=== PATIENT | male | born 1975 ===

== ENCOUNTER → 2018-06-29 | Outpatient (CLI) | payer OTHER ==
[~2018-06-29] MED LIST: AMLO5TAB10 PO; FLUT100D IH; LISI-130 PO; LORA10TA68 PO
--- NOTE | 2018-06-29 12:59 | PAIN ---
DATE OF SERVICE: 06/29/2018 CHIEF COMPLAINT: Right shoulder pain. HISTORY OF PRESENT ILLNESS: The patient is a 43-year-old male with a history of recurrent pain from preexisting injuries, work related and active duty related for many years and his chief complaint is on his right shoulder; however, the patient reports also some pain in the low back and right foot. He has had some surgery in his foot as well, but it has been getting much better with time and physical therapy. The patient reports again, his chief complaint is right shoulder pain, worse with weightbearing activity, reaching over his head with his right arm, any repetitive motions, reaching forward or weight supporting activities. Exercise has become very difficult for him as well secondary to the pain. The patient reports it awakens him from sleep at night, almost every night and does not affect his bowel or bladder control or his ability to walk, but is significant as far as the pain goes with the use of the right shoulder. The patient reports no significant loss of range of motion, but significant pain with movement. The patient reports it is becoming more constant. He finished physical therapy in April of this year. In 2006, he reports he fell, grabbed tree branches. He was falling with his right arm, had partial dislocation of the right shoulder and again multiple injuries of the shoulder over the time. The patient also has low back pain, which is bothersome as well, but his chief complaint is his shoulder. The patient has had physical therapy once again and doing exercise currently. Did have intraarticular injections about 2 years ago, which helped significantly by about 80% by his report. The patient has tried Motrin, Toradol, hydrocodone. Toradol and hydrocodone decreased the pain, but the Motrin has not been effective. The patient reports no loss of motor function and no symptoms significantly in the left shoulder, but in the low back and right leg as well. PAST MEDICAL HISTORY: Significant for hypertension, hearing loss, using hearing aids. PREVIOUS SURGERY: Include right foot surgery with a fractured metacarpal bone, also left knee surgery for meniscus tear. CURRENT MEDICATIONS: Include Flovent, Claritin, lisinopril and amlodipine. ALLERGIES: The patient has no known drug allergies. FAMILY HISTORY: Significant for cancers, multiple types. SOCIAL HISTORY: The patient does not drink alcohol; does not smoke; does not use any illegal, illicit or recreational drugs. He is , lives with his spouse, has 2 children living at home, lives locally in [place], [place]. The patient reports he is no longer active at this time. REVIEW OF SYSTEMS: Positive for those items mentioned in history of present illness. All systems reviewed and otherwise negative. It is complete, full and well documented on the patient's chart. PHYSICAL EXAMINATION: VITAL SIGNS: Blood pressure 135/92, pulse 77, respirations 18, temperature 98.2 degrees Fahrenheit, height is 66 inches, weight is 218 pounds. GENERAL: The patient is awake, alert, oriented, appropriate, very pleasant demeanor. HEENT: Head shows normocephalic, atraumatic. Extraocular movements are intact and symmetrical. Oral cavity: Mucous membranes moist and pink. Dentition is intact. NECK: Shows anterior throat supple without palpable lymphadenopathy noted. Swallow reflex is symmetrical. CHEST: Shows normal with inspection. Breath sounds are clear to auscultation bilaterally. HEART: Shows S1, S2 clear. No murmurs auscultated. ABDOMEN: Soft, nontender, nondistended. No palpable organomegaly is noted. No rebound or guarding demonstrated. BACK: Shows spine grossly in the midline. Normal appearing thoracic kyphosis, lumbar lordotic curvature. There is some moderate tenderness with palpation of the lumbar paraspinous musculature, but is symmetrical on inspection. No radiation is demonstrated. The patient has good rotational motion, both laterally as well as extension and flexion without significant pain reported. No tenderness over the sacrum or sacroiliac regions or the spinous processes. EXTREMITIES: The patient's upper extremities show deep tendon reflexes 2+ in the biceps and triceps tendons. Motor exam is strong with marine machinist strength rated at 5/5 as is bicep and tricep flexion and symmetrical. Shoulder shrug is strong and intact with some minor pain reported on the right side with resistance, but without loss of strength. This is true with abduction of the shoulder to 90 degrees as well on the right side only. No loss of strength with resistance, but pain reported in the posterior and superior aspect of the right shoulder. The patient shows good range of motion both actively and passively without restriction. Peripheral pulses are 2+ radial distribution. No peripheral edema is noted bilaterally. IMPRESSION: A 43-year-old male with approximate 4-year history of pain in right shoulder and upper extremity, status post physical therapy, status post previous medication management and interventional techniques with good results with interventions. The patient would like to pursue this again. We discussed continued physical therapy, medication management and interventional technique. He would like to pursue interventional techniques. PLAN: We will have the preauthorization for a right intra-articular shoulder joint injection in the glenohumeral joint with fluoroscopic guidance. The patient will return to clinic in approximately 1 week. We will plan on right intra-articular shoulder joint injection at that time. VIOLETTA RIOS MD DR: AUGUST/nts JOB#: [id number] / [id number]
== END | disposition home or self-care (01) ==
LOC: PNCL 09:56
PROVIDERS: ATTEND Anesthesiology
DX: M25.511 Pain in right shoulder (principal); M54.5 Low back pain; I10 Essential (primary) hypertension; Z87.81 Personal history of (healed) traumatic fracture; Z79.899 Other long term (current) drug therapy
CPT/HCPCS: G0463

== ENCOUNTER → 2018-07-08 | Outpatient (CLI) | payer OTHER ==
[~2018-07-08] MED LIST changes: -AMLO5TAB10 PO; +AMLO5TAB7 PO; +BUPIVACAINE MPF 0.25% 10 ML VIAL. ONE; +IOHEXOL 180 MG/ML 10 ML VIAL. ONE; +methylPREDNISolone ACETATE 80 MG/ML VIAL. ONE
--- NOTE | 2018-07-08 09:42 | PAIN ---
DATE OF SERVICE: 07/08/2018 PROGRESS NOTE FOR PAIN CLINIC DIAGNOSES: Right shoulder joint pain. HISTORY OF PRESENT ILLNESS: The patient is a 43-year-old male who returns for followup status post initial evaluation and preauthorization for right shoulder joint injection. The patient has obtained this now and would like to proceed. The patient is still with significant pain in the right shoulder with range of motion and weightbearing, reaching over his head with his right arm. The patient reports the pain is a 4 on a scale of 10 at its worse, 2 on average, 1 at its least and it is a 2 today. The patient reports it awakens him from sleep, but only very rarely. The patient reports no new motor or sensory deficits. No new changes. The patient describes the pain as dull and aching, sometimes shooting into the anterior forearm deltoid and bicep, mostly in the superior and posterior aspect of this shoulder as well, but the burning, sometimes stabbing pain. The patient reports no new motor or sensory deficits or other complaints. PHYSICAL EXAMINATION: VITAL SIGNS: The patient's blood pressure is 116/78, pulse 84, respirations 16 and temperature 98.6 degrees Fahrenheit. Height is 66 inches, weight is 205 pounds. GENERAL: The patient is awake, alert, oriented, appropriate, very pleasant demeanor. HEENT EXAMINATION: Shows normocephalic, atraumatic. Extraocular movements are intact and symmetrical. Oral cavity, mucous membranes are moist and pink. Dentition is intact. NECK: Shows anterior throat supple, without palpable lymphadenopathy noted. Swallow reflex is symmetrical. CHEST: Shows normal on inspection. Breath sounds are clear to auscultation bilaterally. HEART: Shows S1, S2 clear. No murmurs auscultated. ABDOMEN: Soft, nontender and nondistended. No palpable organomegaly is noted. No rebound or guarding demonstrated. BACK: Shows spine grossly in the midline. Normal-appearing thoracic kyphosis and lumbar lordotic curvature. EXTREMITIES: The patient's upper extremities show deep tendon reflexes 2+ in the biceps and triceps tendons. Motor exam is strong with public relations professional strength rated at 5/5 as is biceps and triceps flexion. The patient's shoulder shows some moderate tenderness with palpation of the anterior deltoid and the superior aspect of the lateral deltoid, some in the scapular region, but mostly anteriorly. The patient shows good range of motion, good abduction as well as shoulder shrug is strong and symmetrical as is abduction of the shoulders, without loss of strength on resistance. Options were discussed with the patient. The patient's old chart was reviewed as was his current medication regimen updated. Current review of systems updated today as well. We will proceed with a right intra-articular shoulder joint injection on the right side with fluoroscopic guidance. Risks were again discussed including, but not limited to bleeding, infection, possibility of intravascular injection sequelae, spread of local anesthetic and numbness, side effects of steroid medication, exposure to fluoroscopy and poor results regarding pain control. The patient understands and wishes to proceed. The patient will return to the clinic in approximately 2 weeks for followup. He was counseled on his return appointment, activity level and side effects to be aware of. DIAGNOSIS: Right shoulder joint pain. PROCEDURE: Right intra-articular shoulder joint injection using C-arm fluoroscopic guidance under sterile prep and drape using local anesthetic. MEDICATION INJECTED: A total of 80 mg of Depo-Medrol plus 3 mL of 0.25% bupivacaine and 2 mL of Isovue for contrast. CONDITION AT DISCHARGE: Stable. The patient tolerated the procedure well, had no complications. VIOLETTA RIOS MD DR: AUGUST/lata JOB#: [id number] / [id number]
== END | disposition home or self-care (01) ==
LOC: PNCL 08:33
PROVIDERS: ATTEND Anesthesiology
DX: M25.511 Pain in right shoulder (principal)
CPT/HCPCS: 20610; 77002; J1040; J3490; Q9965